=== PATIENT | male | born 1965 | race Caucasian/White ===

== ENCOUNTER 2021-01-07 19:28 | Emergency (ER) | payer OTHER ==
[2021-01-07 19:34] VITALS: BP 164/94; PULSE 90; RESP 20; TEMP 98.7
[2021-01-07] MEDS ORDERED: CEPHALEXIN 500 MG CAP PO STA (19:49)
[2021-01-07] MEDS ORDERED: SULFAMETHOX-TMP 800-160MG 1 EACH TAB PO STA (19:49)
--- NOTE | 2021-01-07 19:54 | ED ---
Skin/Abscess/FB HPI - General Chief complaint: Skin/Abscess/Foreign Body Stated complaint: Cellulitis Time Seen by Provider: 01/07/21 19:36 Source: patient Mode of arrival: ambulatory Limitations: no limitations - History of Present Illness Initial comments: 55-year-old male with history of cellulitis presents to the emergency department with a chief complaint of cellulitis. Patient reports recurrent history of cellulitis on his right lower a minute. States he ready sees an infectious disease doctor who typically treats him with Bactrim and Keflex 14 days. Patient reports he noticed the erythematous morning that is located in his right lower leg.he denies any neck or to the chills. Denies any chest pain shortness of breath. States typically causes primary care physician to give him a prescription of the medication, however he is currently at [place] [id number] [facility] and could not reach him. - Related Data Allergies Allergy/AdvReac Type Severity Reaction Status Date / Time No Known Allergies Allergy Verified 01/07/21 19:34 Review of Systems ROS Statement: Those systems with pertinent positive or pertinent negative responses have been documented in the HPI. ROS Other: All systems not noted in ROS Statement are negative. Past Medical History Past Medical History: Osteoarthritis (OA) Additional Past Medical History / Comment(s): Lupus,hep C,neuropathy, History of Any Multi-Drug Resistant Organisms: MRSA Date of last positivie culture/infection: 2019 MDRO Source:: rt calf Past Surgical History: Joint Replacement Additional Past Surgical History / Comment(s): rt knee Past Psychological History: Anxiety, Depression Smoking Status: Light tobacco smoker Past Alcohol Use History: None Reported Past Drug Use History: Heroin, IV Drug Use, Marijuana, Methamphetamine General Exam Limitations: no limitations General appearance: alert, in no apparent distress Head exam: Present: atraumatic, normocephalic, normal inspection Eye exam: Present: normal appearance, PERRL, EOMI Pupils: Present: normal accommodation ENT exam: Present: normal exam, normal oropharynx, mucous membranes moist Neck exam: Present: normal inspection, full ROM. Absent: tenderness Respiratory exam: Present: normal lung sounds bilaterally. Absent: respiratory distress Cardiovascular Exam: Present: regular rate, normal rhythm, normal heart sounds Extremities exam: Present: full ROM, tenderness (mild tenderness at the erythematous region), normal capillary refill, other (palpable DP and PT bilaterally.). Absent: normal inspection (erythema noted in the right lower extremity. No clear defined borders and erythema. Warm to the touch compared to the other leg.), pedal edema, joint swelling, calf tenderness Back exam: Present: normal inspection, full ROM. Absent: tenderness Neurological exam: Present: alert, oriented X3 Psychiatric exam: Present: normal affect, normal mood Skin exam: Present: warm, dry, intact, normal color Course Vital Signs 01/07/21 19:29 Temperature 98.7 F Pulse Rate 90 Respiratory 20 Rate Blood Pressure 164/94 O2 Sat by Pulse 100 Oximetry Medical Decision Making - Medical Decision Making 55-year-old male presents to emergency Department with a chief complaint of cellulitis. Chronic history of cellulitis. These typically a with Keflex and Bactrim. Will be started on Keflex and Bactrim in emergency department and discharged to 14 day course. No chest pain shortness of breath. Vital signs within normal limits. Return parameters discussed the patient was understanding and agreeable. Case discussed with Dr. Day Disposition Clinical Impression: Cellulitis of right leg Disposition: HOME SELF-CARE Condition: Stable Instructions (If sedation given, give patient instructions): Cellulitis (DC) Additional Instructions: Take prescribed medication as directed. Follow up with a primary care physician. Return to emergency department if symptoms worsen. Is patient prescribed a controlled substance at d/c from ED?: No Referrals: None,Stated [Primary Care Provider] - 1-2 days Time of Disposition: 19:53
== END 2021-01-07 20:14 | disposition home or self-care (01) ==
LOC: EC 19:28
DX: L03.115 Cellulitis of right lower limb (principal); F17.200 Nicotine dependence, unspecified, uncomplicated; Z86.73 Personal history of transient ischemic attack (TIA), and cerebral infarction without residual deficits; Z96.651 Presence of right artificial knee joint
CPT/HCPCS: 99283